=== PATIENT | female | born 1970 | race Caucasian/White ===

== ENCOUNTER 2020-07-10 15:23 | Inpatient (IN) | payer MEDICAID ==
[~2020-07-10] VITALS: Ht 162.5 cm; Wt 66.7 kg
[2020-07-11] MEDS ORDERED: REXULTI2 MG PO (18:17)
[2020-07-11] MEDS ORDERED: XANAX0.5 MG PO (18:24)
[2020-07-11 18:58] VITALS: BP 115/82
--- NOTE | 2020-07-11 18:59 | NUR ---
AYSE LONG a 50 year old F admitted via wheel chair from the ADMITTING as a voluntary admission VIA GUARDIAN. Arrived on unit at 1848. ALLERGIES: ORANGE JUICE, CITRUS AND DERIVATIVES, FOOD DYE/COLORING, ALBUTEROL, PHENYTOIN AND SUMATRIPTAN. Vital signs are: [phone]/82. The client signed the following forms with stated understanding: Authorization For The Release of Medical Information, Clothing List, Consent to Voluntary Admission and Hospitalization, Consent and Release Forms/Receipt of Rights, Acknowledgement of Advance Directive Information, Behavioral Health Consent Form, and Informed Consent of Medications. Admitted under the services of Dr. WENCESLAO PAULA,[facility]. A search was conducted and hazardous articles were removed. Client was oriented to the unit. PATIENT IS ALERT TO PERSON, PLACE, TIME AND SITUATION WITH DELUSIONAL THOUGHTS. AWARE OF BEING AT [facility] BUT STATING SHE IS AT THE [facility]OTECT[facility] WITNESS PROGRAM OVER [place]. DID NOT ELEBORATE ANY FARTHER. PATIENT SITTING IN QUITE ROOM WITH DRINK PROVIDED PER REQUEST. HAIDER OBRIEN
[2020-07-11] MEDS ORDERED: KEPPRA250 MG PO (19:19)
[2020-07-11] MEDS ORDERED: LAMICTAL100 MG PO (19:20)
[2020-07-11] MEDS ORDERED: BIOFREEZE118 ML T (19:29)
[2020-07-11] MEDS ORDERED: MOTRIN 400 MG E4 TAB PO (19:30)
[2020-07-11] MEDS ORDERED: NATURE'S BLEND F1 MG PO (19:31)
[2020-07-11] MEDS ORDERED: METOPROLOL SUCC50 M1 PO (19:32)
[2020-07-11] MEDS ORDERED: GOOD NEIGHBOR P20 MG PO (19:32)
--- NOTE | 2020-07-11 19:44 | NUR ---
DR LAUREN NOTIFIED OF ADMISSION
--- NOTE | 2020-07-11 20:52 | NUR ---
DR. LAUREN ON UNIT TO ASSESS PT.
[2020-07-11 21:20] VITALS: BP 115/82
[2020-07-11 21:32] LABS: BILIRUBIN Negative (Negative); BLOOD Trace-Lysed (Negative); COLOR Yellow (Yellow); GLUCOSE Negative (Negative); KETONE Negative (Negative); LEUKO ESTERASE Negative (Negative); NITRITE Negative (Negative); PH 5.5 (4.5-8.0)
[2020-07-11 21:52] LABS: CLARITY Clear (Clear)
[2020-07-11 21:53] LABS: EPITHELIAL CELLS 0-2; WBC 0-2 wbc/hpf (0-5)
--- NOTE | 2020-07-11 22:09 | NUR ---
P-ANXIOUS. I-ASSESSED FOR SI/HI, HALLUCINATIONS/DELUSIONS AND/OR PARANOIA. PROVIDED REDIRECTION, DIVERSIONAL ACTIVITIES AND 1:1 EMOTIONAL SUPPORT. R-DENIES SI/HI, HALLUCINATIONS/DELUSIONS AND PARANOIA. CALM, COOPERATIVE, AND INTERACTING WITH PEERS. ACCEPTED REDIRECTION NEEDED, CURRENTLY WATCHING A MOVIE, AND ACCEPTED EMOTIONAL SUPPORT. THIS NURSE NOTED PT TO BE RESPONDING TO INTERNAL STIMULI. P-WILL CONTINUE TO MONITOR FOR SI/HI, HALLUCINATIONS/DELUSIONS AND PARANOIA. Q 15 MIN CHECKS MAINTAINED AND PRN.
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
[2020-07-11] MEDS ORDERED: KEPPRA500 MG PO (22:57)
--- NOTE | 2020-07-11 23:17 | NUR ---
PT REFUSED INVEGA PO. PT BECAME ANGRY, IRRITABLE REPORTING IT CAUSED HER TO HAVE A 4 HOUR SEIZURE.
--- NOTE | 2020-07-12 00:04 | NUR ---
PT PACING HALLS, ANXIOUS, IRRITABLE, UPSET STAFF TAKING CLOTHING TO WASH. PT TALKING TO UNSEEN OTHERS. PROVIDED 1:1 EMOTIONAL SUPPORT, EDUCATION AND REDUCED STIMULI. ALL NON-PHARMACOLOGICAL INTERVENTIONS INEFFECTIVE. PRN ATIVAN 1MG PO GIVEN.
--- NOTE | 2020-07-12 00:34 | NUR ---
24 HR chart check completed.
--- NOTE | 2020-07-12 01:04 | NUR ---
PT RESTING IN BED AT THIS TIME. PRN ATIVAN EFFECTIVE.
[2020-07-12] MEDS ORDERED: IBUPROFEN400 MG PO (05:31)
--- NOTE | 2020-07-12 05:41 | NUR ---
PT SLEPT 4 HOURS.
--- NOTE | 2020-07-12 06:41 | NUR ---
PT BEING RUDE TO STAFF, DEMANDING, AND INTRUSIVE. PROVIDED REDIRECTION, AND OFFERED REDUCED STIMULI. PT NOT RECEPETIVE TO INTERVENTIONS.
--- NOTE | 2020-07-12 06:43 | NUR ---
PT SITTING IN ROOM SPEAKING TO UNSEEN OTHERS WITH INAPPROPRIATE LAUGHTER.
[2020-07-12 06:48] LABS: BASO % 0.3 % (0.0-1.0); EOS # 0.1 10*3/uL (0.0-0.4); EOS % 1.1 % (1.0-4.0); HEMATOCRIT 41.1 % (37.0-47.0); LYMPH # 1.7 10*3/uL (1.3-4.4); LYMPH % 14.9 % (27.0-41.0); MEAN CELL VOLUME 99.8 fl (81.0-99.0); MEAN CORPUSCULAR HGB CONC 32.1 g/dl (33.0-37.0); MEAN PLATELET VOLUME 10.4 fl (9.6-12.3); MONO # 1.1 10*3/uL (0.1-1.0); MONO % 9.6 % (3.0-9.0); NEUT # 8.6 10*3/uL (2.3-7.9); NEUT % 73.7 % (47.0-73.0); PLATELET COUNT AUTOMATED 271 10*3/uL (130-400); RED BLOOD COUNT 4.12 10*6/uL (4.10-5.10); RED CELL DISTRI WIDTH 12.9 % (0-14.5); WHITE BLOOD COUNT 11.6 10*3/uL (4.8-10.8)
[2020-07-12 07:05] LABS: ALBUMIN 3.3 gm/dl (3.1-4.5); BUN 10 mg/dl (7-24); CHLORIDE 110 mmol/L (98-107); HDL CHOLESTEROL 46 mg/dl (40-60); POTASSIUM 4.5 mmol/L (3.5-5.1); SODIUM 144 mmol/L (136-145)
[2020-07-12 07:17] LABS: ALKALINE PHOSPHATASE 110 U/L (45-117); CHOLESTEROL 216 mg/dL (<200); CREATININE 0.63 mg/dL (0.55-1.02); LDL CHOLESTEROL 147 mg/dL (9-159); SGOT/AST 16 IU/L (3-35); SGPT/ALT 20 U/L (12-78); THYROID STIM HORMONE (HS) 0.992 uIU/ml (0.358-4.75); TOTAL PROTEIN 7.1 gm/dL (6.4-8.2); TRIGLYCERIDES 116 mg/dl (<150); VLDL CHOLESTEROL 23 mg/dL (6-40)
[2020-07-12 07:37] VITALS: BP 126/82
[2020-07-12 08:07] LABS: VITAMIN D, 25-HYDROXY 28.1 ng/mL (30-100)
--- NOTE | 2020-07-12 08:22 | NUR ---
PATIENT IN RESTROOM IN HER ROOM TALKING TO UNSEEN OTHERS. PATIENT REFUSED EXELON PATCH AND BLUE GEL CREAM. WILL CONTINUE TO MONITOR Q15 MINUTES.
--- NOTE | 2020-07-12 08:50 | NUR ---
Treatment Plan meeting was held this a.m. with MATTHIAS Guerrero RN, SALONI-S and Traffic Inspector in attendance. Plan for discharge next week. Pt. came to [facility] from [facility].
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
--- NOTE | 2020-07-12 15:39 | NUR ---
PT COMES TO NURSE'S STATION, PT ANGRY AND CONFRONTATIONAL. PT STATES "WHEN ARE MY NEXT MEDICATIONS DUE?" ADVISED PT HER NEXT SCHEDULED MEDICATIONS WERE DUE AT 2100. PT STATES "WELL THAT'S JUST GREAT. GUESS I'M SCREWED THEN, HUH?". THIS NURSE ASKS PT IF THERE IS SOMETHING SHE NEEDS. PT STATES "YEAH. I'M IN PAIN AND MY NERVES ARE SHOT BECAUSE I NEED TO EAT. GUESS I'LL JUST LET MY BRAIN SWELL AND STARVE THEN". PT REPORTS PAIN ALL OVER. AGREED TO TAKE IBUPROFEN. IBUPROFEN 400MG PO GIVEN AT THIS TIME. SNACK GIVEN. WILL MONITOR FOR EFFECT.
--- NOTE | 2020-07-12 17:11 | NUR ---
P: PATIENT IS IRRITABLE, INTRUSIVE, PARANOID, AUDITORY/VISUAL HALLUCINATIONS, DEMANDING AND PREOCCUPIED. I: 1:1 FOR EMOTIONAL SUPPORT. PROVIDE SPACE NEEDED. ALLOW PATIENT TO VERBALIZE FEELINGS. ENCOURAGE MEDICATION COMPLIANCE. R: PATIENT IS ALERT AND ORIENTED TO PERSON, PLACE, TIME AND SITUATION. PATIENT IS ANGRY AND IRRITABLE. PATIENT IS PARANOID, SHE REFUSED MEDICATION THIS MORNING DUE TO IT "DOESN'T LOOK RIGHT". PATIENT WAS DEMANDING WITH HER MEDICATIONS AND HER BELONGINGS. PATIENT DENIES ANY SI/HI. PATIENT DENIES ANY SADNESS, DEPRESSION, OR ANXIETY. PATIENT IS RESPONDING TO INTERNAL STIMULI. PATIENT IS TALKING TO UNSEEN OTHERS AND RESPONDING TO THEM WELL. PATIENT MAKES GESTURES WHEN TALKING TO UNSEEN OTHERS. PATIENT IS A SET UP FOR MEALS WITH GOOD INTAKES AND ADEQUATE FLUIDS. PATIENT IS AMBULATORY WITH STEADY GAIT. INDEPENDENT WITH ACTIVITIES OF DAILY LIVING. PATIENT IS SOMEWHAT COMPLIANT WITH HER MEDICATIONS BUT DOES EXHIBIT PARANOIA. P: Q 15MINUTE SAFETY CHECKS MAINTAINED. WILL ENCOURAGE MEDICATION COMPLIANCE. WILL ENCOURAGE GROUP ACTIVITIES. WILL CONTINUE TO MONITOR FOR MOODS/BEHAVIORS.
[2020-07-12 20:00] VITALS: BP 122/71
--- NOTE | 2020-07-13 04:56 | NUR ---
P-CONFRONTATIONAL, AGITATED, HALLUCINATION, DISRUPTIVE, PREOCCUPIED I-REDIRECTION WITH 1:1 THERAPEUTIC INTERVENTIONS. EDUCATE AND ENCOURAGE MEDICATION COMPLIANCE R-PATIENT MEDICATON COMPLIANT WITH MOST MEDICATIONS AT HS. PATIENT PROVIDED NOURISHMENT FLUIDS AT HS. PATIENT DISRUPTIVE ON UNIT WHEN DISCUSSING HS MEDICATIONS. PATIENT YELLING ABOUT A FEW MEDICATIONS THAT SHE WOULD NOT TAKE AND OTHER MEDICATIONS THAT WERE "POSSIBLE ALLERGIC REACTIONS". PATIENT REQUEST THAT THIS NURSE CALL THE DOCTOR TO CONFIRM MEDICATIONS. THIS NURSE CALLED AND SPOKE TO MARTINEZ MARRUFO NP. NEW PRN ORDER RECEIVED. PATIENT PREOCCUPIED WITH THE BATHROOM. PATIENT FREQUENTLY IN THE BATHROOM TALKING TO AND SEEING UNSEEN OTHERS. PATIENT WOULD NOT ELABORATE ON WHAT HALLUCINATIONS WERE SAYING. PATIENT INSPECTING PILLS IN THEIR PACKAGES PRIOR TO THIS NURSE OPEN THE PACKAGES. DUE TO REFUSAL ON HALDOL 5MG PO, PATIENT ADMINISTERED HALDOL IM IN LEFT DELTOID. SECURITY X 3 ON UNIT TO HELP SO NURING COULD GIVE IM INJECTION. PATIENT STATED TO THIS NURSE "YOU ARE DOING THIS AGAINST MY WILL. I'M GOING TO OWN THIS HOSPITAL. I REBUKE THEE." PATIENT FINISHED TAKING PO MEDICATIONS EXCEPT FOR CYMBALTA WITH ENCOURAGEMENT. PATIENT WITH REDIRECTION PROVIDED THROUGHOUT SHIFT. PATIENT WITH NO HOMICIDAL OR SUICIDAL IDEATIONS. P-CONTINUE TO ENCOURAGE MEDICATION COMPLIANCE, ENCOURAGE GROUP THERAPY WHILE AWAKE
--- NOTE | 2020-07-13 06:55 | NUR ---
PATIENT SLEPT 9 HOURS OF UNINTERRUPTED SLEEP THROUGHOUT SHIFT. Q 15 MINUTE CHECKS MAINTAINED. 24 HR chart check completed.
--- NOTE | 2020-07-13 06:57 | NUR ---
PATIENT SLEPT 6 HOURS OF INTERRUPTED SLEEP THROUGHOUT SHIFT. Q 15 MINUTE CHECKS MAINTAINED. 24 HR chart check completed.
[2020-07-13 08:00] VITALS: BP 104/67
--- NOTE | 2020-07-13 09:14 | NUR ---
Patient resting quietly with no c/o discomfort. Respirations easy and regular. Vital signs stable. No overt distress. LAWSON MEDEL
--- NOTE | 2020-07-13 11:00 | NUR ---
on unit to see pt at this time.
--- NOTE | 2020-07-13 12:20 | NUR ---
PT REFUSING ANTIPSYCHOTIC MEDICATIONS, STATING "I'M NOT PSYCHOTIC. YOU ARE TRYING TO POISON MY BODY". ASSESSED FOR MOOD, ORIENTATION LEVEL, AND BEHAVIORS. ASSESSED FOR SI/HI, INTENT OR PLAN. ASSESSED FOR HALLUCINATIONS AND DELUSIONS. MEDICATIONS ADMINISTERED PER ORDERS, EDUCATION PROVIDED. PT MOOD IS LABILE. PT STAYS IN ROOM FOR MAJORITY OF THIS SHIFT. PT VERY SUSPICIOUS OF MEDICATIONS THIS AM, EDUCATION PROVIDED ON EACH. PT REFUSED PO HALDOL, GUARDIAN MADE AWARE AND GAVE CONSENT TO ADMINISTER MEDICATION IN IM INJECTION IF NEEDED TO HELP PT BREAK PSYCHOSIS. APPROACHED PT WITH HALDOL IM, PROVIDED EDUCATION AND EMOTIONAL SUPPORT, PT STATES SHE WILL TAKE HALDOL PO. HALDOL PO ADMINISTERED, NO POCKETING NOTED UPON VISUAL INSPECTION OF MOUTH. PT APPEARED TO BE VISUALLY HALLUCINATING THIS AM; HOWEVER, NO OVERT S/S OF ATTENDING TO INTERNAL STIMULI SINCE. PT DENIES SI, INTENT OR PLAN. PT DOES BECOME TEARFUL WHEN DISCUSSING HER DISLIKE OF HALDOL AND INVEGA. EMOTIONAL SUPPORT PROVIDED. WILL CONTINUE TO PROVIDE MEDICATION EDUCATION APPRPRIATE. WILL CONTINUE TO EDUCATE PT ON PLAN OF CARE. WILL CONTINUE TO REDIRECT APPROPRIATE. Q 15 MIN MONITORING PER POLICY.
--- NOTE | 2020-07-13 12:27 | NUR ---
The patient has no complaints and is resting comfortably. LAWSON MEDEL
--- NOTE | 2020-07-13 15:52 | NUR ---
PT REQUESTING MOTRIN FOR C/O BACK AND LEFT ARM DISCOMFORT PT STATES IS A "10 OUT OF 10". ADMINISTERED PER PRN ORDERS, PT STATES SHE IS GOING TO LAY DOWN AND REST.
[2020-07-13 20:00] VITALS: BP 102/65
--- NOTE | 2020-07-13 21:20 | NUR ---
Patient alert and oriented x4. Mood is argumentative,disruptive,irritable and agitated. Patient noted to be conversing with unseen others. Patient compliant with most of HS medications except for her Cymbalta. Patient says "I don't take that pill,you made a mistake. I am already taking a pill that I don't want to take and it is Haldol and I am not taking something that I know I am not on at home. I am going to talk to the doctor about this". Patient complaining about other patients cursing and yelling during the night and this patient not getting any sleep. Patient refused all attempts at therapeutic communication and/or emotional support. Redirection/reorientation when needed. Plan to continue to encourage medication compliance. Also continue to offer emotional support,therapeutic communication,and continue to redirect/reorient when needed/appropriate. Will also continue to monitor moods/behaviors. Q 15 minute safety checks continued and maintained. See [facility] flowsheet for further documentation.
--- NOTE | 2020-07-14 00:19 | NUR ---
24 HR chart check completed.
--- NOTE | 2020-07-14 05:40 | NUR ---
Patient slept approx. 7 hours throughout shift. Q 15 minute safety checks continued and maintained.
[2020-07-14 08:00] VITALS: BP 104/74
--- NOTE | 2020-07-14 16:24 | NUR ---
PT A&O X4. RESTLESS AT TIMES AND PACES THE GRANDE AT TIMES. ARGUMENTATIVE AT TIMES. PT SPEAKING TO UNSEEN OTHERS; HOWEVER WHEN THE PT NOTICES STAFF IS WATCHING THE PT STATES SHE WAS TALKING TO HERSELF.PT WALKED IN THE DINNINGROOM AND LOOKED AT WHERE THE CHAIRS WERE POSITIONED AND PT STATED TO THIS NURSE I AM JUST TRYING TO FIGURE OUT WHERE TO SIT SO I DONT GET HARASSED. ANOTHER PT YELLING OUT SEEMS TO BE MAKING THIS PATIENT ANXIOUS. PT THEN LEFT THE DINNINGROOM. MEDICATION COMPLIANT WITH EDUCATION PROVIDED. PT EDUCATED REGARDING HALDOL DECONATE PRIOR TO INJECTION AND PT STATED SHE IS NOT GETTING AN INJECTION AND NO ONE COULD FORCE IT ON HER. PT REQUESTED TO SEE A COURT ORDER. ANOTHER RN REAPPROACHED PT AND PT WILLINGLY TOOK INJECTION FOR THAT NURSE. BEHAVIORS MONITORED WITH Q15 MINUTE SAFETY CHECKS. SEE [facility] FLOWSHEET FOR SPECIFIC MONITORING. PT DENIES SI/HI WELL HALLUCINATIONS AND DELUSIONS.
--- NOTE | 2020-07-14 19:36 | NUR ---
SPOKE TO DR GRAHAM AT CLIENTS REQUEST. ORDER TO INCREASE MOTRIN 400MG PO TO Q 8 HOURS PRN RECIEVED
[2020-07-14 20:00] VITALS: BP 127/80
--- NOTE | 2020-07-14 20:29 | NUR ---
REFUSED HALDOL BECAUSE SHE GOT INJECTION EARLIER AND WAS TOLD SHE NO LONGER NEEDED THE PILL
--- NOTE | 2020-07-14 21:56 | NUR ---
MOTRIN GIVEN PER CLIENTS REQUEST TO "KEEP THE SWELLING AWAY." NO SWELLING NOTED AT THIS TIME. WILL MONITOR
--- NOTE | 2020-07-14 22:00 | NUR ---
REMAINS RESTLES GOING FROM ROOM TO DININGROOM AND NOT STAYING FOR MORE THAN 1-2 MINUTES. GETTING MOTRIN SEENS TO HAVE CALMED HER A BIT. WILL CONTINUE TO MONITOR FOR CHANGES IN MOOD/BEHAVIOR AND Q 15 MINS AND PRN FOR SAFETY.
--- NOTE | 2020-07-14 22:50 | NUR ---
APPEARS MOTRIN EFFECTIVE FOR CLIENT. CLIENT SLEEPING
--- NOTE | 2020-07-15 02:11 | NUR ---
24 HR chart check completed.
--- NOTE | 2020-07-15 06:37 | NUR ---
UP SINCE 0545AM. PO FLUIDS PROVIDED. CURRENTLY IN SHOWER DOING AM CARE. WILL CONTINUE TO MONITOR
[2020-07-15 07:35] VITALS: BP 113/68; BP 127/72
--- NOTE | 2020-07-15 09:00 | NUR ---
Treatment Plan meeting was held this a.m. with Dr. Yanes, MATTHIAS Guerrero, RN, AT, NURSING PROGRAM MANAGER-S and Baler Operator in attendance. Plan for discharge at the end of the week, Next Week. Pt. will return to [facility] at discharge.
--- NOTE | 2020-07-15 10:49 | NUR ---
PT EDUCATED REGARDING NEW MEDICATION, EXELON. PT REFUSED THIS MEDICATION MULTIPLE TIMES.
--- NOTE | 2020-07-15 15:27 | NUR ---
Clinical updates faxed to [facility]. Left Message for Lynette at facility to discuss discharge Planning.
--- NOTE | 2020-07-15 15:36 | NUR ---
PM GROUP AND ASSESSMENT ATTEMPTED TO ASSESS PT BUT PT WAS VERY RUDE AND PARANOID. PT REFUSES TO ATTEND GROUP THERAPY BUT DOES COME IN TO GET FOOD THAT SHE HAS KEPT ON THE WINDOW SILL, TAKES A BITE AND LEAVES AGAIN.
[2020-07-15 19:14] VITALS: BP 115/72
--- NOTE | 2020-07-15 20:34 | NUR ---
MOTRIN GIVEN AT CLIENTS REQUEST TO STOP SWELLING
--- NOTE | 2020-07-16 00:16 | NUR ---
24 HR chart check completed.
--- NOTE | 2020-07-16 01:23 | NUR ---
CAME TO DESK TWICE REQUESTING DRINK. ICE WATER OFFERED AND REFUSED. CLIENT HAD 4 CRANBERRY AND APPLEJUICES WITH 2 CANS OF MINNIE STEVE BEFORE GOING TO BED. ENCOURAGED WATER SHE IS NOT GETTTING PROPER WATER INTAKE.
--- NOTE | 2020-07-16 02:10 | NUR ---
BACK TO DININGROOM FOR SALTINES FOR UPSET STOMACH AND GLASS OF ICE WATER
--- NOTE | 2020-07-16 05:54 | NUR ---
BROKEN SLEEP. DIFFICULTY KEEPING EYES OPEN. ARGUMENTATIVE THIS MORNING STATING SHE HASN'T SLEPT. IRRITABLE WITH REALITY THAT SHE HAD BEEN SLEEPING AND SHE IS HAVING A HARD TIME STAYING AWAKE NOW. RETURNED TO ROOM ANGRY BUT WENT RIGHT BACK TO SLEEP. WILL CONITNUE TO MONITOR
--- NOTE | 2020-07-16 06:18 | NUR ---
PATIENT SLEPT 6 HOURS INTERRUPTED THROUGHOUT SHIFT. Q 15 MINUTE CHECKS MAINTAINED
[2020-07-16 07:42] VITALS: BP 130/74
--- NOTE | 2020-07-16 09:00 | NUR ---
Treatment Plan meeting was held this a.m. with Dr. Yanes via telephone, PAINT POURER Yolanda RN, AT, MEDIA SERVICES SPECIALIST-S and Funeral Director And Embalmer in attendance. Plan for discharge at the end of the weeek, beginning of next week. Pt. will return to [facility].
--- NOTE | 2020-07-16 09:40 | NUR ---
Pt was pleasant with this bid writer this AM while pt sat in activity room. Pt was appropriate in conversation. No hallucinations or delusions were noted in pt while interacting with this COLD WORKING SUPERVISOR-S.
--- NOTE | 2020-07-16 10:45 | NUR ---
DR JOSÉ ON UNIT TO ASSESS PATIENT, UPDATE PROVIDED.
--- NOTE | 2020-07-16 11:30 | NUR ---
PHYSICAL THERAPY Eval/screen received pt is from [facility]. Pt observed ambulating in hallways no AD steady gait up/down for STS from various chairs in dining room at one point kneeling on chair looking out window. Spoke w nsg staff, pt ambulatory t/o unit and Ind with no balance issues or safety concerns. No skilled PT indicated at this time, will d/c PT orders Debbie Doll PT
--- NOTE | 2020-07-16 11:30 | NUR ---
OT NOTE Occupational therapy order received, chart reviewed, and screening completed this date. Patient was ambulatory in the hallway upon arrival to the [facility]. Per [facility] nursing staff, the patient is independent with all ADLs, transfers, and functional mobility. No further OT indicated at this time. Thank you for the referral. Yina Alvarez, OTR/L
--- NOTE | 2020-07-16 15:40 | NUR ---
PM GROUP/MOVIE PT ATTENDED AFTERNOON GROUP THERAPY AND PARTICIPATED BY WATCHING THE MOVIE. PT LEFT TO USE THE BATHROOM A FEW TIMES BUT CAME RIGHT BACK. PT WAS QUIET AND FOCUSED AND MUCH MORE PLEASANT THAN YESTERDAY. PT EXHIBITED NO ADVERSE BEHAVIORS WHILE IN GROUP.
--- NOTE | 2020-07-16 15:53 | NUR ---
PATIENT COMPLAINING OF 10/10 PAIN TO HEAD, HANDS, FEET, NECK, BACK, SPINE, LEFT HIP AND ARMS. SPOKE TO DR RAMIREZ AND HE STATED HE WILL PUT A NEW ORDER FOR PAIN IN. I MADE PATIENT AWARE AND WILL CONTINUE TO KEEP HER INFORMED. Q 15 MINUTE SAFETY CHECKS MAINTAINED.
--- NOTE | 2020-07-16 18:40 | NUR ---
PT A&O X4. DEPRESSED MOOD AT TIMES. INTERACTIVE AND PARTICIPATING WITH STAFF AND PEERS. PT NOTED TALKING TO SELF; HOWEVER PT STATED SHE WAS PRAYING TO GOD. SOMATIC TODAY. PT CONTINUES TO ASK FOR PAIN PILLS. PT STATED SHE CANT CONTINUE TO TAKE IBUPROFEN AND REFUSES TYLENOL. PT CONTINUES TO ASK FOR MORE BLUE GEL. EDUCATED ON MEDICATION. PT NEEDS REDIRECTION AT TIMES DUE TO INTERFERING WITH CARE OF OTHER PATIENTS. PT ATTEMPTES TO QUESTION THE ACTIONS OF NURSING CARE FOR OTHER PATIENTS. AMBULATORY WITH A STEADY GAIT. REFUSES SKIN CHECK. CONTINENT OF BOWEL AND BLADDER. BEHAVIORS MONITORED WITH Q15 MINUTE SAFETY CHECKS. CONTINUE TO MONITOR BEHAVIORS AND EDUCATE PT ON MEDICATIONS WHEN NEEDED. SEE [facility] FLOWSHEET FOR SPECIFIC MONITORING.
[2020-07-16 19:34] VITALS: BP 117/76
--- NOTE | 2020-07-16 22:42 | NUR ---
P-CONFRONTATIONAL, AGITATED, PREOCCUPIED I-REDIRECTION WITH 1:1 THERAPEUTIC INTERVENTIONS. EDUCATE AND ENCOURAGE MEDICATION COMPLIANCE R-PATIENT MEDICATON COMPLIANT. PATIENT PROVIDED NOURISHMENT FLUIDS AT HS. PATIENT PREOCCUPIED WITH MEDICATIONS. PATIENT PROVIDED WITH MEDICATION EDUCATION. PATIENT FREQUENTLY ASKING FOR SNACKS AT HS. PATIENT WITH NO HALLUCINATIONS OR DELUSIONS. PATIENT WITH NO HOMICIDAL OR SUICIDAL IDEATIONS. P-CONTINUE TO ENCOURAGE MEDICATION COMPLIANCE, ENCOURAGE GROUP THERAPY WHILE AWAKE
--- NOTE | 2020-07-17 06:19 | NUR ---
PATIENT SLEPT 5 HOURS INTERRUPTED SLEEP THROUGHOUT SHIFT. Q 15 MINUTE CHECKS MAINTAINED. 24 HR chart check completed.
[2020-07-17 08:00] VITALS: BP 113/68
--- NOTE | 2020-07-17 09:00 | NUR ---
Treatment Plan meeting was held this a.m. with ANTHONY Guerrero, RN, AT, SALONI-S and Pump House Operator in attendance. Plan for discharge Wednesday. Pt. will return to [facility] at discharge.
--- NOTE | 2020-07-17 09:51 | NUR ---
ON UNIT TO SEE PT
--- NOTE | 2020-07-17 11:39 | NUR ---
AM GROUP PT WAS IN AND OUT OF MORNING GROUP THERAPY. PT CHOOSES NOT TO PARTICIPATE IN ANY ACTIVITY OFFERED, ONLY TO WATCH TV OR A MOVIE. PT EXHIBITED NO ADVERSE BEHAVIORS WHILE IN THE DAYROOM.
--- NOTE | 2020-07-17 12:47 | NUR ---
Left Voice Message for Lynette at [facility] to notify of planned discharge for Wednesday. Clinical Updates faxed to facility [phone].
--- NOTE | 2020-07-17 14:52 | NUR ---
This AM pt was pleasant with this sports writer as pt was walking around the unit. Asked if this sports writer could assist pt in anyway. Pt declined the need.
--- NOTE | 2020-07-17 14:56 | NUR ---
P: RESPONDING TO INTERNAL STIMULI IN QUIET ROOM HAVING CONVERSATION WITH UNSEEN OTHERS. I: ONE ON ONE FOR EMOTIONAL SUPPORT AND REDIRECTION PROVIDED R: EFFECTIVE. PATIENT IS ALERT TO PERSON, PLACE, TIME AND SITUATION. MOOD IS LESS ANXIOUS/STABLE. DENIES ANY HALLUCINATIONS, DELUSIONS, HI/SI 0R PAIN. BLUE GEL PROVIDED OF MUSCLE ACHES. MEDICATION COMPLAINT WITH EDUCATION PROVIDED. Q 15 MINUTE SAFETY CHECKS MAINTAINED. INTERACTIVE WITH STAFF AND OTHER PATIENTS. INDEPENDENT WITH ACTIVITIES OF DAILY LIVING, CONTINENT OF BOWEL AND BLADDER. SET UP FOR MEALS, INTAKES ARE GOOD WITH ADEQUATE FLUID. SHOWERED THIS MORNING. AMBULATORY WITH STEADY GAIT. P: CONTINUE TO MONITOR FOR WANDERING, HAVING OUTBURST, AUDITORY/VISUAL HALLUCINATIONS. PROVIDE ONE ON ONE, REDIRECTIONS AND PRESENT REALITY NEEDED.
--- NOTE | 2020-07-17 15:47 | NUR ---
PM GROUP PT WAS IN AND OUT OF THE DAYROOM DURING AFTERNOON GROUP THERAPY. PT REQUESTED MUSIC TO BE PLAYED AND THEN LEFT THE ROOM. PT DID NOT RETURN.
--- NOTE | 2020-07-17 16:41 | NUR ---
Shift chart check completed.
--- NOTE | 2020-07-17 16:56 | NUR ---
Pt complaining of pain all over, offered pt PRN Ibuprofen or Tylenol as per PRN orders. Pt declines. Pt insists she should have "a real pain pill". Pt states "I've been dealing with this for two years. There's only so much a person can take". Offered pt various other nonpharmacological pain relief measures, pt declines all. Phoned and made aware of above. advises nursing to offer ordered PRNs. No further orders recieved at this time.
[2020-07-17 19:28] VITALS: BP 112/72
--- NOTE | 2020-07-17 21:42 | NUR ---
P-DEMANDING, PREOCCUPIED I-REDIRECTION WITH 1:1 THERAPEUTIC INTERVENTIONS. EDUCATE AND ENCOURAGE MEDICATION COMPLIANCE R-PATIENT MEDICATON COMPLIANT. PATIENT PROVIDED NOURISHMENT FLUIDS AT HS. PATIENT PREOCCUPIED WITH MEDICATIONS. PATIENT PROVIDED WITH MEDICATION EDUCATION. PATIENT DEMANDING WITH NURSING STAFF THROUGHOUT SHIFT. PATIENT WITH NO HALLUCINATIONS OR DELUSIONS. PATIENT WITH NO HOMICIDAL OR SUICIDAL IDEATIONS. P-CONTINUE TO ENCOURAGE MEDICATION COMPLIANCE, ENCOURAGE GROUP THERAPY WHILE AWAKE
--- NOTE | 2020-07-18 05:44 | NUR ---
PATIENT SLEPT 4-5 HOURS OF INTERRUPTED SLEEP THROUGHOUT SHIFT. Q 15 MINUTE CHECKS MAINTAINED. 24 HR chart check completed.
[2020-07-18 07:38] VITALS: BP 118/69
--- NOTE | 2020-07-18 09:00 | NUR ---
Treatment Plan meeeting was held this a.m. with Dr. Yanes, RN, AT and Household Refrigerator Mechanic. Plan for discharge Wednesday. [facility]
--- NOTE | 2020-07-18 09:52 | NUR ---
DR. HIRSCH ON UNIT TO ASSESS PATIENT.
--- NOTE | 2020-07-18 11:36 | NUR ---
AM GROUP PT DID NOT ATTEND MORNING GROUP THERAPY. PT WAS IN BED RESTING.
--- NOTE | 2020-07-18 12:40 | NUR ---
ONE ON ONE WITH PATIENT REGARDING MEDICATIONS ORDERS AND NEW ORDER FOR HALDOL DECONATE. PATIENT REFUSING TO TAKE MEDICATION WITH MUCH ENCOURAGEMENT. EDUCATION PROVIDED ON MEDICATION COMPLAINCE WITH TAKING MEDICATIONS SCHEDULED. INFORM PATIENT THAT THE HALDOL DECONATE IS A MONTHLY INJECTION TO HELP WITH HER HALLUCINATIONS. PATIENT DENIES HAVING HALLUCINATIONS, STATES "I'M TALKING TO GOD, NOT HAVING HALLUCINATIONS" ONE ON ONE INEFFECTIVE. WILL ATTEMPT AGAIN DURING SHIFT.
--- NOTE | 2020-07-18 13:30 | NUR ---
THIS NURSE APPROACHED PT TO SPEAK TO HER RE: RECEIVING HALDOL DECONATE 50MG IM PER DOCTORS. PT ARUGUEMENTATIVE WITH STAFF STATING "THEY TOLD ME IF I TOOK THE ONE SHOT, I WOULDN'T HAVE TO TAKE ANYMORE." PT REFUSING IM INJECTION, STATING "YOU ARE TRYING TO POISON ME, I'M NOT TAKING THE MEDICATION." STAFF PROVIDED EMOTINONAL SUPPORT AND 1:1 FOR PT TO VOICE FEELINGS AND ENCOURAGED MED COMPLIANCE, WITHOUT SUCCESS.
--- NOTE | 2020-07-18 14:06 | NUR ---
PATIENT RECIEVED HALDOL DECONATE 50MG IM TO LEFT DELTOID AND TOLERATED WELL.
--- NOTE | 2020-07-18 14:07 | NUR ---
PATIENT COMPLAINED OF PAIN ALL OVER, RATING 10/10. PRN IBUPROFEN 400MG PO GIVEN AT THIS TIME.
--- NOTE | 2020-07-18 14:33 | NUR ---
P: IRRITABLE, LABILE AND ARGUEMENTATIVE. I: ONE ON ONE, REDIRECTION, PRESENT ORIENTATION TO REALITY NEEDED. R: WITH MANY ATTEMPTS FROM STAFF, EFFECTIVE. PATIENT IS ALERT TO PERSON, PLACE, TIME AND SITUATION; ABLE TO VOICE NEEDS. MOOD IS IRRITABLE AT TIMES AND TALKING TO SELF WHEN FUSTRATED. PATIENT DENIES ANY HALLUCINATIONS, DELUSIONS, HI/SI AND MEDICATED WITH IBROPHEN 400MG PO FOR 10/10 PAIN ALL OVER. MEDICATION COMPLAINT. Q 15 MINUTE SAFETY CHECKS MAINTAINED. INDEPENDENT WITH ACTIVITIES OF DAILY LIVING, CONTINENT OF BOWEL AND BLADDER. SET UP FOR MEALS, INTAKE ARE GOOD WITH ADEQUATE FLIUDS. ISOLATIVE AT TIMES. P: CONTINUE TO MONITOR FOR AGGRESSION, HALLUCINATIONS AND DELUSIONS. PROVIDE ONE ON ONE FOR EMOTIONAL SUPPORT, REDIRECTION/ORIENTATION TO REALITY AND MONITOR FOR MEDICATION COMPLAINCE.
--- NOTE | 2020-07-18 15:39 | NUR ---
PM GROUP PT CAME INTO THE DAYROOM DURING AFTERNOON GROUP THERAPY AND SAT IN A CHAIR BY THE DOOR. PT CHOSE NOT TO PARTICIPATE IN ANY ACTIVITY. PT SAT FOR ABOUT 10 MINUTES, STOOD UP AND STATED, "I GUESS I JUST HAVE TO SIT HERE AND BE ALL ANXIOUS WAITING FOR THOSE NURSES TO DO THEIR JOBS! THAT ONE NURSE LAST NIGHT HAD A REAL ATTITUDE WITH ME AND I DON'T APPRECIATE IT" PT EXITED THE DAYROOM AND RETURNED SOME TIME LATER. PT STATED SHE CAME IN, "THAT NURSE LAST NIGHT IS SAYING THAT I'M TALKING TO PEOPLE AND I'M NOT, I'M TALKING TO GOD AND SOMETIMES I DO IT OUTLOUD, A LOT OF WOMEN DO"
[2020-07-18 19:02] VITALS: BP 107/70
--- NOTE | 2020-07-18 19:30 | NUR ---
Patient resting quietly with no c/o discomfort. Respirations easy and regular. Vital signs stable. No overt distress. LAWSON MEDEL
--- NOTE | 2020-07-18 23:26 | NUR ---
The patient has no complaints and is resting comfortably. PT HAS BEEN CALM, COOPERATIVE, APPROPRIATE THIS SHIFT. MOOD IS PLEASANT. PT STATES THAT SHE IS EXCITED TO GET TO LEAVE TOMORROW. PT IS MEDICATION COMPLIANT WITHOUT DIFFICULTY. REQUESTED TO WATCH A MOVIE THIS EVENING WHILE EATING HS SNACK. WENT TO BED AT 2100. Q15 MIN MONITORING FOR SAFETY. LAWSON MEDEL
--- NOTE | 2020-07-19 03:30 | NUR ---
The patient has no complaints and is resting comfortably. LAWSON MEDEL
--- NOTE | 2020-07-19 06:43 | NUR ---
pt slept a broken 8 hours. pt states she was up multiple times t/o the night. pt was observed getting up to use bathroom multiple times. pt is in shower this am, stating "once i'm up, i'm up, might as well get a shower".
[2020-07-19 07:36] VITALS: BP 111/64
[2020-07-19] MEDS ORDERED: BENZTROPINE ME0.5 MG PO (07:58)
[2020-07-19] MEDS ORDERED: Haldol Decanoate IM (07:58)
[2020-07-19] MEDS ORDERED: ALPRAZOLAM0.5 M3 PO (07:58)
--- NOTE | 2020-07-19 08:03 | NUR ---
SPOKE WITH DR RAMIREZ AT [phone] RE: PT DC FOR TODAY AND MEDICAL MEDS NEEDING COMPLETED. NO FURTHER ORDERS AT THIS TIME.
--- NOTE | 2020-07-19 09:00 | NUR ---
Treatment Plan meeting was held this a.m. with MATTHIAS Guerrero, RN, AT, [facility] and [employer]. Plan for discharge Today. Pt.will return to [facility]. Transportation has been arranged with [facility] to Transport with picker operator time 1:30 p.m. Legal Guardian was notified 07/18/20.
--- NOTE | 2020-07-19 09:50 | NUR ---
DR. HIRSCH ON UNIT TO ASSESS PT BEFORE DISCHARGE.
--- NOTE | 2020-07-19 11:42 | NUR ---
PATIENT COMPLAINING OF BACK AND BILATERAL HAND/WRIST PAIN, RATING PAIN 8/10. PRN IBUPROFEN 400MG PO GIVEN AT THIS TIME.
--- NOTE | 2020-07-19 11:47 | NUR ---
AM GROUP PT WAS PRESENT FOR MORNING GROUP THERAPY AND REQUESTED A MOVIE. THE MOVIE WAS ONLY 5 MINUTES IN AND PT STATED, "ARE YOU GOING TO BE MAD AT ME IF I LEAVE AND GO TO MY ROOM TO LAY DOWN?" PT WAS TOLD THAT THAT WAS UP TO HER AND THAT I WOULD NOT BE MAD. PT LEFT THE DAYROOM AND DID NOT RETURN. PT IS SET TO BE DISCHARGED FROM THE UNIT THIS AFTERNOON.
--- NOTE | 2020-07-19 12:38 | NUR ---
Patient is discharging today returning to [facility]. Follow-up will be with Dr Yanes, visiting psychiatrist. Pt's guardian also takes pt to [facility] for counseling. While at [facility], pt's behaviors improved. Pt participated minimally in programming.
--- NOTE | 2020-07-19 13:22 | NUR ---
Discharge Paperwork faxed to [facility].
--- NOTE | 2020-07-19 13:40 | NUR ---
[facility] SERVICE PRESENT FOR DISCHARGE. PATIENT ASSISTED TO [facility] ALL BELONGING GATHERED AND DISCHARGE INSTRUCTION SENT WITH PATIENT OFF UNIT.
== END 2020-07-19 13:40 | disposition home or self-care (01) | DRG 758 ==
LOC: 3N 15:23
PROVIDERS: ADMIT Psychiatry & Neurology Psychiatry; ATTEND Psychiatry & Neurology Psychiatry
DX: F63.81 Intermittent explosive disorder (principal); Z98.891 History of uterine scar from previous surgery; F17.210 Nicotine dependence, cigarettes, uncomplicated; F25.9 Schizoaffective disorder, unspecified; E87.8 Other disorders of electrolyte and fluid balance, not elsewhere classified; Z20.828 Contact with and (suspected) exposure to other viral communicable diseases; E55.9 Vitamin D deficiency, unspecified; Z91.02 Food additives allergy status; Z88.8 Allergy status to other drugs, medicaments and biological substances; Z98.51 Tubal ligation status; Z79.899 Other long term (current) drug therapy